=== PATIENT | male | born 1995 | race Two or more races ===

== ENCOUNTER 2017-03-04 23:39 | Emergency (ER) | payer BC ==
[~2017-03-04] VITALS: Ht 170.2 cm; Wt 75.0 kg
[2017-03-05] MEDS ORDERED: ACETAMINOPHEN 325MG TABLET PO STA (05:04)
[2017-03-05] MEDS ORDERED: SODIUM CHLORIDE 0.9% 1,000 ML IV ONE (05:04)
[2017-03-05] MEDS ORDERED: KETOROLAC 30MG/ML VIAL IV STA (05:04)
[2017-03-05 07:48] VITALS: BP 108/40
[2017-03-05] MEDS ORDERED: PENICILLIN G BENZATHINE 1,200,000 UNITS/2ML SYR IM ONE (09:15)
[2017-03-05] MEDS ORDERED: PREDNISONE 20MG TABLET PO ONE (09:15)
== END 2017-03-05 09:40 | disposition home or self-care (01) ==
LOC: ER 23:39
DX: J02.0 Streptococcal pharyngitis (principal); F17.200 Nicotine dependence, unspecified, uncomplicated; F12.10 Cannabis abuse, uncomplicated
CPT/HCPCS: 71010; 87804; 96361; 96372; 96374; 99285; J0561; J1885; J7030; J7512; Z7610